=== PATIENT | female | born 1950 | race Asian ===

== ENCOUNTER 2016-09-30 09:27 | Emergency (ER) | payer OTHER ==
[~2016-09-30] VITALS: Ht 160 cm; Wt 85.5 kg
[2016-09-30 09:30] VITALS: Ht 160 cm; Wt 85.5 kg
[2016-09-30] MEDS ORDERED: ALBUTEROL 0.083% (NEB) 2.5 MG/3 ML AMP HHN STA (09:57)
[2016-09-30] MEDS ORDERED: IPRATROPIUM (NEB) 0.5 MG/2.5 ML AMP NEB STA (09:57)
--- NOTE | 2016-09-30 10:49 | RADRPT ---
PROCEDURE: XR Chest. CLINICAL INDICATION: chest pain TECHNIQUE: Single frontal view of the chest was obtained COMPARISON: None FINDINGS: The heart is normal in size. The thoracic aorta is ectatic. The lungs are clear. There is no pleural effusion or pneumothorax. RPTAT: AA IMPRESSION: No acute disease. Slightly ectatic thoracic aorta. .Juanito Tom MD, MD Date Time Electronically viewed and signed by .Juanito Tom MD, on 09/30/2016 10:49 .S/
[2016-09-30] MEDS ORDERED: DEXAMETHASONE 10 MG/ML 1 ML INJ IM ONE (11:30)
[2016-09-30] MEDS ORDERED: AZIT250T94 PO (11:34)
[2016-09-30] MEDS ORDERED: ALBU18HF INHALATION (11:34)
[2016-09-30] MEDS ORDERED: BENZ100C70 PO (11:34)
[2016-09-30 11:37] VITALS: BP 121/83; PULSE 88; RESP 20; TEMP 98.3
[2016-09-30] MEDS ORDERED: ACET500C5 PO (11:40)
--- NOTE | 2016-09-30 11:46 | ERD ---
ER Documentation Chief Complaint Date/Time DATE: 09/30/16 TIME: 11:42 Chief Complaint sore throat and dry cough x 2 days HPI 66-year-old female patient with a past medical history of hypertension presents to the ED complaining of sore throat and dry cough that started 2 days ago. Reports that she has been sneezing and her cough is dry. States that she has been taking Benadryl without relief. Reports that she feels slightly short of breath. States that she takes metoprolol. Denies any chest pain, wheezing, abdominal pain, nausea, vomiting, dyspnea on exertion, orthopnea, fever, chills. Reports that her son is also sick with similar symptoms. ROS All systems reviewed and are negative except as per history of present illness. Medications Home Meds Active Scripts Acetaminophen* (Tylophen*) 500 Mg Capsule, 1 CAP PO Q6H Y for PAIN AND OR ELEVATED TEMP, #20 CAP Prov:MYRA JONAS-C 09/30/16 Albuterol Sulfate* (Ventolin HFA*) 18 Gm Hfa.aer.ad, 2 PUFF INHALATION Q4H, #1 INHALER Prov:MYRA JONAS-C 09/30/16 Benzonatate* (Tessalon Perle*) 100 Mg Capsule, 100 MG PO Q8H Y for COUGH, #20 CAP Prov:MYRA JONAS-C 09/30/16 Azithromycin* (Zithromax*) 250 Mg Tablet, 250 MG PO .ZPACK DIRECTED, #6 TAB TAKE 500 MG (2 TABS) THE FIRST DAY THEN 250 MG (1 TAB) DAYS 2-5 Prov:MYRA JONAS-C 09/30/16 Allergies Allergies: Coded Allergies: No Known Allergy (Unverified , 09/30/16) PMhx/Soc Medical and Surgical Hx: pt denies Medical Hx, pt denies Surgical Hx Hx Alcohol Use: No Hx Substance Use: No Hx Tobacco Use: No Smoking Status: Never smoker Physical Exam Vitals Vital Signs Date Time Temp Pulse Resp B/P Pulse Ox O2 Delivery O2 Flow Rate FiO2 09/30/16 11:37 98.3 88 20 121/83 100 Room Air 09/30/16 10:46 81 20 96 21 09/30/16 09:30 99.1 98 20 134/74 96 Physical Exam Const: [id number], well-nourished. In no acute distress. Head: Atraumatic, normocephalic Eyes: Normal Conjunctiva without injection. No purulent discharge. PERRL. EOMI ENT: Normal external ear. Ear canal without erythema. Tympanic membrane pearly josue without effusion or bulging. Nasal canal clear with normal turbinates. Moist oropharynx without tonsillar exudates. Non-erythematous pharynx. Uvula midline. No drooling. No trismus. Neck: Full range of motion. No meningismus. No cervical lymphadenopathy. Resp: Inspiratory and expiratory rhonchi noted. No wheezing, rales, or crackles. No accessory muscle use. No retractions. Cardio: Regular rate and rhythm. No murmurs, rubs or gallops. Abd: Soft, non tender, non distended. Normal bowel sounds. No palpable masses. No rebound tenderness. No guarding. Skin: No petechiae or rashes Back: No midline tenderness. No CVA tenderness. Ext: No cyanosis, or edema. Neur: Awake and alert. Psych: Normal Mood and Affect Results 24 hrs Current Medications Medications (Trade) Dose Ordered Sig/Elysia Route PRN Reason Start Time Stop Time Status Last Admin Dose Admin Ipratropium Sandwich (Atrovent 0.02% (Neb)) 1 mg ONCE STAT NEB 09/30/16 09:57 09/30/16 09:59 DC 09/30/16 10:45 Albuterol (Proventil 0.083% (Neb)) 5 mg ONCE STAT HHN 09/30/16 09:57 09/30/16 09:59 DC 09/30/16 10:44 Dexamethasone (Decadron) 10 mg ONCE ONCE IM 09/30/16 11:30 09/30/16 11:31 DC 09/30/16 11:35 Procedures/MDM This is a 66-year-old female patient with a past medical history of hypertension presents to the ED complaining of sore throat and dry cough that started 2 days ago. Patient is afebrile and nontoxic-appearing. Patient has normal vital signs. A chest x-ray and EKG was ordered to further evaluate patient. Breathing treatment consisting of 5 mg albuterol, 1 mg Atrovent, 10 mg Decadron IM was ordered to further treat patient with improvement. PROCEDURE: XR Chest. CLINICAL INDICATION: chest pain TECHNIQUE: Single frontal view of the chest was obtained COMPARISON: None FINDINGS: The heart is normal in size. The thoracic aorta is ectatic. The lungs are clear. There is no pleural effusion or pneumothorax. RPTAT: AA IMPRESSION: No acute disease. Slightly ectatic thoracic aorta. EKG reviewed and interpreted by Dr. Mullins Rate/Rhythm: [89 bpm, Normal Sinus Rhythm] No ectopy, no ST elevations, normal axis. QRS, ST, T-waves: [No changes consistent w/ acute ischemia] Impression: [No evidence of ischemia or arrhythmia] Due to the rhonchi noted in patient's lung exam and productive cough this patient presents to the ED with symptoms consistent with probable bronchitis. Patient is appropriate for outpatient management. Low suspicion for CHF, carotid dissection, acute myocardial infarction, pneumothorax, pneumonia, cardiac tamponade, pulmonary embolism, thoracic aneurysm, AAA, aortic dissection , Boerhaave's syndrome, cardiac dysrhythmias,meningitis, intracranial bleed, seizure, stroke, TIA or other emergent conditions. There is a low suspicion for mononucleosis, epiglottitis, otitis media, otitis externa, viral/strep pharyngitis, sinusitis, peritonsillar abscess, mastoiditis, retropharyngeal abscess, meningitis, sepsis, acute abdomen or other emergent conditions. Chest x-ray was discussed with my supervising physician, Dr. Mullins who stated that there was no emergent conditions noted on chest x-ray. Discharge medications: Tessalon Perles, Zithromax, Ventolin Patient was instructed to return to the ED for any new or worsening symptoms. They should otherwise follow up with the primary care provider within 1-2 days. The patient's questions were answered at the time of discharge. Patient understood and agreed with discharge management. Departure Diagnosis: Primary Impression: Cough Condition: Stable Patient Instructions: Bronchitis, Antiobiotic Treatment (Adult) Referrals: COMM[facility]ITY CLIN[facility] YOU HAVE RECEIVED A MEDICAL SCREENING EXAM AND THE RESULTS INDICATE THAT YOU DO NOT HAVE A CONDITION THAT REQUIRES URGENT TREATMENT IN THE EMERGENCY DEPARTMENT. FURTHER EVALUATION AND TREATMENT OF YOUR CONDITION CAN WAIT UNTIL YOU ARE SEEN IN YOUR DOCTORS OFFICE WITHIN THE NEXT 1-2 DAYS. IT IS YOUR RESPONSIBILITY TO MAKE AN APPOINTMENT FOR FOLOW-UP CARE. IF YOU HAVE A PRIMARY DOCTOR --you should call your primary doctor and schedule an appointment IF YOU DO NOT HAVE A PRIMARY DOCTOR YOU CAN CALL OUR PHYSICIAN REFERRAL HOTLINE AT IF YOU CAN NOT AFFORD TO SEE A PHYSICIAN YOU CAN CHOSE FROM THE FOLLOWING [facility] [address] [facility] [address] [facility] [address] [facility] [address] [facility] [address] [facility]. [facility] [address] [facility]. [facility] YOU HAVE RECEIVED A MEDICAL SCREENING EXAM AND THE RESULTS INDICATE THAT YOU DO NOT HAVE A CONDITION THAT REQUIRES URGENT TREATMENT IN THE EMERGENCY DEPARTMENT. FURTHER EVALUATION AND TREATMENT OF YOUR CONDITION CAN WAIT UNTIL YOU ARE SEEN IN YOUR DOCTORS OFFICE WITHIN THE NEXT 1-2 DAYS. IT IS YOUR RESPONSIBILITY TO MAKE AN APPOINTMENT FOR FOLOW-UP CARE. IF YOU HAVE A PRIMARY DOCTOR --you should call your primary doctor and schedule and appointment IF YOU DO NOT HAVE A PRIMARY DOCTOR YOU CAN CALL OUR PHYSICIAN REFERRAL HOTLINE AT . IF YOU CAN NOT AFFORD TO SEE A PHYSICIAN YOU CAN CHOSE FROM THE FOLLOWING [facility]: [facility] [address] [place] [address] [facility] [address] [place] [address] [address] [address] [place] [address] [facility] URGENT C[facility]/SPECIALTIES Additional Instructions: Call your primary care doctor TOMORROW for an appointment during the next 2-3 days.See the doctor sooner or return here if your condition worsens before your appointment time - fever, difficulty breathing, shortness of breath, chest pain , nausea, vomiting, etc. MYRA JONAS PA-C Sep 30, 2016 11:46
== END 2016-09-30 11:47 | disposition home or self-care (01) ==
LOC: FTE 09:27
DX: R05 Cough (principal); I10 Essential (primary) hypertension
CPT/HCPCS: 71010; 93005; 94664; J1100; Z7610; 96372

== ENCOUNTER 2017-07-21 11:25 | Emergency (ER) | END 2017-07-21 13:58 | disposition home or self-care (01) ==